=== PATIENT | male | born 1950 | race Caucasian/White ===

== ENCOUNTER 2016-07-08 19:53 | Inpatient (IN) | payer MEDICARE, BC ==
[~2016-07-08] VITALS: Ht 172.7 cm; Wt 88.7 kg
[2016-07-08 20:00] VITALS: BP 149/69
[2016-07-08] MEDS ORDERED: PROGRAF0.5 M1 PO ×2 (20:06→20:07)
[2016-07-08] MEDS ORDERED: HYDRALAZINE HC100 MG PO (20:07)
[2016-07-08] MEDS ORDERED: LIPITOR80 MG PO (20:08)
[2016-07-08] MEDS ORDERED: NIFEDIPINE ER90 MG PO (20:08)
[2016-07-08] MEDS ORDERED: PROTONIX40 MG PO (20:08)
[2016-07-08] MEDS ORDERED: COREG25 MG PO (20:09)
[2016-07-08] MEDS ORDERED: COSOPT EYE DROPS5 ML EACH EYE (20:09)
[2016-07-08] MEDS ORDERED: COLACE100 MG PO (20:09)
[2016-07-08] MEDS ORDERED: ALPHAGAN 0.2%5 ML EACH EYE (20:10)
[2016-07-08] MEDS ORDERED: ISOSORBIDE DINI20 MG PO (20:10)
[2016-07-08] MEDS ORDERED: IPRAT-ALBUT 0.5-3 ML UPD (20:11)
[2016-07-08] MEDS ORDERED: SYNTHROID50 MCG PO (20:12)
[2016-07-08] MEDS ORDERED: PREDNISONE5 MG PO (20:13)
[2016-07-08] MEDS ORDERED: LASIX40 MG PO (20:13)
[2016-07-08] MEDS ORDERED: ECOTRIN325 MG (20:13)
[2016-07-08] MEDS ORDERED: LEVEMIR100 U/M1 (20:14)
[2016-07-08] MEDS ORDERED: NIFEDIPINE ER60 MG PO (20:15)
[2016-07-08] MEDS ORDERED: PLAVIX75 MG PO (20:15)
[2016-07-08] MEDS ORDERED: AKWA TEARS15 ML EACH EYE (20:16)
[2016-07-08] MEDS ORDERED: DULCOLAX5 MG PO (20:16)
[2016-07-08] MEDS ORDERED: NORCO 7.5/325 T1 TA1 PO (20:18)
[2016-07-08] MEDS ORDERED: NOVOLOG100 U/M1 SC (20:18)
[2016-07-08] MEDS ORDERED: ONDANSETRON4 MG/2 M3 IV (20:19)
[2016-07-08] MEDS ORDERED: ACETAMINOPHEN500 M1 PO (20:19)
[2016-07-08 21:05] LABS: BASOPHILS 0.1 % (0.0-2.0); EOSINOPHILS 0.2 % (0-7); HEMATOCRIT 35.6 % (42.0-54.0); HEMOGLOBIN 11.3 g/dL (13.5-17.5); IMMATURE GRANULOCYTES 0.5 % (0-5); LYMPHOCYTES 3.6 % (15-50); MCH 26.3 pg (26.0-34.0); MCHC 31.7 g/dL (31.0-37.0); MCV 82.8 fL (80.0-100.0); MEAN PLATELET VOLUME 10.1 fL (7.4-10.4); MONOCYTES 9.7 % (2-11); NEUTROPHILS 85.9 % (40-80); PLATELET COUNT 249 10x3/uL (130-400); RDW 16.2 % (11.5-14.5); WBC 11.5 10x3/uL (4.8-10.8)
[2016-07-08 21:17] LABS: ALBUMIN 2.4 g/dL (3.4-5.0); ANION GAP 15.5 mmol/L (8-16); BILIRUBIN - DIRECT 0.33 mg/dL (0.00-0.30); BILIRUBIN - INDIRECT 0.36 mg/dL (0.00-1.00); BILIRUBIN - TOTAL 0.69 mg/dL (0.2-1.3); CALCIUM 8.3 mg/dL (8.5-10.1); CARBON DIOXIDE 23.2 mmol/L (21.0-32.0); POTASSIUM - SERUM 4.7 mmol/L (3.5-5.1); PROTEIN - SERUM 6.1 g/dL (6.4-8.2)
[2016-07-08 21:36] LABS: APPEARANCE CLEAR (CLEAR); BILIRUBIN NEGATIVE (NEGATIVE); COLOR YELLOW (YELLOW); GLUCOSE NEGATIVE (NEGATIVE); KETONE NEGATIVE (NEGATIVE); LEUKOCYTE ESTERASE NEGATIVE (NEGATIVE); NITRITE NEGATIVE (NEGATIVE); PROTEIN NEGATIVE (NEGATIVE); UROBILINOGEN NORMAL (NORMAL)
[2016-07-08 21:40] LABS: CKMB 1.6 U/L (0.0-3.6); CREATINE KINASE 59 UL (21-232)
[2016-07-08 21:42] LABS: TROPONIN-I < 0.017 ng/mL (0.000-0.060)
[2016-07-08 21:43] LABS: CREATININE - URINE 51.1 mg/dL (30-125); PRO/CRE RATIO URINE 0.4 mg/g; PROTEIN - URINE 22.9 mg/dL (0.0-11.9)
--- NOTE | 2016-07-08 22:06 | NUR ---
PT ARRIVED VIA EMS FROM [facility] AWAKE, ALERT, ORIENTED @ APPROX 20:00. PT WAS TRANSFERRED WITHOUT DIFFICULTY FROM STRETCHER TO HOSPITAL BED. DR. MIR WAS HERE AND IMMEDIATELY SAW PT UP ON ADMISSION. PT IS DEMONSTRATING NONEXERTIONAL DYSPNEA, WEAKNESS, REQUIRES MODERATE ASSISTANCE WITH URINAL USAGE, TRANSFERRING, AND RESITUATING IN BED. PT DENIES ANY ACUTE NEEDS AT THIS TIME. CONTINUE TO COMPLETE ADMISSION PROCESS AND MONITOR PT CLOSELY.
[2016-07-09] VITALS (12 sets, daily range): BP systolic 137–170; BP diastolic 41–86; Ht 172.7 cm; Wt 88.7 kg
[2016-07-09 03:33] LABS: CKMB 1.3 U/L (0.0-3.6); CREATINE KINASE 52 UL (21-232)
[2016-07-09 03:35] LABS: TROPONIN-I < 0.017 ng/mL (0.000-0.060)
--- NOTE | 2016-07-09 05:08 | NUR ---
PT SITTING UP ON SIDE OF BED, HEAD TILTED DOWN, EYES CLOSED, EASILY ROUSABLE TO VERBAL STIMULI. I ASKED PT IF HE NEED THE HOB RAISED, AND HE STATED HE DID NOT, THAT HE WAS COMFORTABLE IN THAT POSITION. I OFFERED TO ASSIST PT TO BEDSIDE CHAIR, IN WHICH HE ALSO DENIED WANTING TO DO. PT HAS BEEN MILDLY RESTLESS, BUT CONTINUES TO DENY ANY NEEDS. PT STATED HE WOULD NOTIFY ME IF HE FELT LIKE HIS SUGAR WAS GETTING LOW, AND STATES HE IDENTIFIES THAT HE BEGINS HAVING A COLD SWEAT. PT C/O PAIN IN HIS RIGHT SIDE FROM A FALL AT HIS HOME LAST Wednesday07/05/16. CONTINUE TO MONITOR CLOSELY. BED LOW, CALL LIGHT IN REACH, SIDE RAILS X 2, HOB 30 DEGREES. PT DID PULL HIS IV OUT DURING TRANSFERRING FROM WHEELCHAIR AFTER HAVING HIS CT AND X-RAYS DONE UPON ARRIVAL. WILL RESITE.
--- NOTE | 2016-07-09 05:51 | NUR ---
PT LYING IN BED ON RIGHT SIDE, EYES CLOSED, RESPIRATIONS EVEN AND UNLABORED AT THIS TIME. CONTINUE TO MONITOR CLOSELY.
--- NOTE | 2016-07-09 06:35 | NUR ---
PT WAS FOUND LYING IN BED, FSBS 43, O2 69% ON ROOM AIR, PT HAS BECOME COMBATIVE, UNCOOPERATIVE AND SEVERELY AGITATED. PT WAS ADMINISTERED GLUCAGON AND GLUCOSE GEL. PT IS SLOWLY BECOMING MORE COOPERATIVE AND ALERT AT THIS TIME. CONTINUE TO MONITOR CLOSELY.
--- NOTE | 2016-07-09 06:55 | NUR ---
PT REMAINS UNCOOPERATIVE, BUT WILL WEAR HIS O2 NC AT 5LPM AT THIS TIME. PT IS REFUSING THE GLUCOSE GEL, REFUSING TO DRINK JUICE, HAS PULLED HIS LEFT DRESSING OFF HIS LEFT THORACOSTOMY DRAIN TUBE, THEN HAS TRIED TO PULL THE DRAIN TUBE OUT. PT HAS REFUSED THE RENAL U/S. PT IS UNABLE TO BE REORIENTED AT THIS TIME. I HAVE GIVEN ANOTHER DOSE OF IM GLUCAGON. WILL ATTEMPT TO RECHECK FSBS.
--- NOTE | 2016-07-09 07:00 | NUR ---
RECEIVED PT REPORT. WILL CONTINUE PLAN OF CARE. NO OTHER NEEDS AT THIS TIME. WILL CONTINUE TO [facility].
--- NOTE | 2016-07-09 08:24 | NUR ---
PT IS ALERT. ASSESSMENT DONE PER FLOWSHEET. NO CO PAIN AT THIS TIME. WILL CONTINUE TO MOTNIOR.
[2016-07-09 09:44] LABS: CKMB 1.6 U/L (0.0-3.6); CREATINE KINASE 54 UL (21-232); TROPONIN-I < 0.017 ng/mL (0.000-0.060)
[2016-07-09 11:04] LABS: BASOPHILS 0.1 % (0.0-2.0); EOSINOPHILS 0.7 % (0-7); HEMATOCRIT 35.2 % (42.0-54.0); HEMOGLOBIN 11.4 g/dL (13.5-17.5); LYMPHOCYTES 3.7 % (15-50); MCH 26.6 pg (26.0-34.0); MCHC 32.4 g/dL (31.0-37.0); MCV 82.1 fL (80.0-100.0); MONOCYTES 8.4 % (2-11); NEUTROPHILS 86.1 % (40-80); PLATELET COUNT 259 10x3/uL (130-400); RBC 4.29 10x6/uL (4.20-6.10); RDW 15.9 % (11.5-14.5)
[2016-07-09 11:05] LABS: WBC 18.3 10x3/uL (4.8-10.8)
[2016-07-09 11:08] LABS: ANION GAP 12.2 mmol/L (8-16); CALCIUM 8.9 mg/dL (8.5-10.1); CARBON DIOXIDE 26.6 mmol/L (21.0-32.0); CREATININE - SERUM 1.5 mg/dL (0.6-1.3)
[2016-07-09 11:09] LABS: POTASSIUM - SERUM 3.8 mmol/L (3.5-5.1)
--- NOTE | 2016-07-09 12:47 | NUR ---
IV access-#22 introcan catheter in left hand x 1 attempt for IV access. Romana Rdz RN
--- NOTE | 2016-07-09 13:23 | NUR ---
NO SS OF DISTRESS AT THIS TIME. WILL CONTINUE TO MONITOR.
--- NOTE | 2016-07-09 15:47 | NUR ---
PATIENT TO THE FLOOR VIA BED FROM MED 2. PATIENT ALERT, ORIENTED X4. DROWSY. UNABLE TO LAY FLAT. PATIENT WAS POSITIONED IN BED, HOOKED UP TO MONITORS. PATIENT DENIES NEEDS. PATIENT WAS BROUGHT OVER ON 8L N/C. CONFIRMED WITH RESPIRATORY. PER THEM, PATIENT TO BE ON 6L N/C. PATIENTS OXYGEN DROPPED TO 6L. NOTIFIED [facility] THAT THE PATIENT WAS HERE. SHE TOOK OVER CARE.
--- NOTE | 2016-07-09 17:59 | NUR ---
1630 REPORT RECIEVED AND CARE ASSUMED OF PT.. PT HAS A FISTULA IN RIGHT ARM AND A PIV IN THE LEFT HAND.SALINE LOCK. DENIES SOB 8LNC O2.. SR ON HEART MONITOR .. 1700 MEDS GIVEN AND RENAL FULL LIQUID DIET SERVED 1800 WITHOUT VISITORS I AND O DONE
--- NOTE | 2016-07-09 19:15 | NUR ---
REPORT RECEIVED AND CARE GIVEN. PATIENT IS SITTING UP IN BED. DENIES PAIN OR SHORTNESS OF BREATH. O2 ON NC @ 6L WITH SATS IN HIGH 90'S. FISTULA IN RIGHT FOREARM. PIV IN LEFT HAND THAT IS CDI AND PATENT. SEE FLOWSHEET FOR MORE DETAILS. NORMAL SINUS RYTHEM ON MONITOR, VSS.
--- NOTE | 2016-07-09 20:00 | NUR ---
PATIENT UP TO BEDSIDE COMMODE. HAD SMALL BOWEL MOVEMENT. PATIENT CLEANED UP AND BACK TO BED.
--- NOTE | 2016-07-09 21:00 | NUR ---
REFUSING TO TAKE MEDS AT THIS TIME. PATIENT STATES "YOU MADE ME SICK WHEN YOU GAVE ME THE FIRST PILL" PATIENT HELPED UP TO BEDSIDE AND STATES NAUSEA HAS WENT AWAY BUT STILL DENIES TO TAKE PILLS.
--- NOTE | 2016-07-09 23:00 | NUR ---
REASSESSMENT COMPLETE, NO CHANGES AT THIS TIME. PATIENT TOOK HIS PO HYDRALAZINE BUT REFUSED TO TAKE THE REST. PATIENT DENIES TO GIVE CULTURE OF FLUID FROM CHEST TUBE. STATES " THEY DRAINED IT THIS MORNING AND THERE WON'T BE ANYMORE FLUID TIL WEDNESDAY"
[2016-07-10] VITALS (23 sets, daily range): BP systolic 98–172; BP diastolic 61–90
--- NOTE | 2016-07-10 00:45 | NUR ---
PATIENT UP TO BEDSIDE COMMODE. PATIENT HAD SMALL STICKY BOWEL MOVEMENT. CLEANED UP AND BACK TO BED. PATIENT DENIES FURTHER NEED.
--- NOTE | 2016-07-10 03:00 | NUR ---
REASSESSMENT COMPLETE. NO ACUTE CHANGES. SEE FLOWSHEET FOR DETAILS.
--- NOTE | 2016-07-10 05:00 | NUR ---
PATIENT HELPED TO BEDSIDE COMMODE, HAD SMALL BOWEL MOVEMENT, CLEANED UP AND BACK TO BED.
[2016-07-10 05:18] LABS: ANION GAP 16.9 mmol/L (8-16); CALCIUM 8.6 mg/dL (8.5-10.1); CARBON DIOXIDE 24.1 mmol/L (21.0-32.0); CREATININE - SERUM 1.2 mg/dL (0.6-1.3)
[2016-07-10 05:22] LABS: BASOPHILS 0.1 % (0.0-2.0); EOSINOPHILS 0.1 % (0-7); HEMATOCRIT 36.5 % (42.0-54.0); HEMOGLOBIN 11.4 g/dL (13.5-17.5); IMMATURE GRANULOCYTES 1.8 % (0-5); LYMPHOCYTES 3.5 % (15-50); MCH 25.6 pg (26.0-34.0); MCHC 31.2 g/dL (31.0-37.0); MCV 81.8 fL (80.0-100.0); MEAN PLATELET VOLUME 10.1 fL (7.4-10.4); MONOCYTES 6.5 % (2-11); PLATELET COUNT 260 10x3/uL (130-400); RBC 4.46 10x6/uL (4.20-6.10); RDW 16.3 % (11.5-14.5)
[2016-07-10 05:23] LABS: WBC 13.6 10x3/uL (4.8-10.8)
--- NOTE | 2016-07-10 07:00 | NUR ---
REC'D REPORT AND RESUMED CARE, AWAKE AND CONFUSED ABOUT TIME AND SITUATION, O2 VIA NC AT 4L, SAT 97%, RIGHT FA FISTULA NO BRUIE OR THRILL, ABDOMENT WITH CT DRAINS B/L, DRESSING CDI, URINAL IN USE, ASSESSMENT COMPLETE PER FLOWSHEET, VSS, WILL CONTINUE WITH POC
--- NOTE | 2016-07-10 07:45 | NUR ---
BREAKFAST TRAY TO BEDISDE, ASSIST WITH SET UP AND INDEPENDENT WITH EATING
--- NOTE | 2016-07-10 08:15 | NUR ---
600 CC URINE EMPTIED FROM URINAL
--- NOTE | 2016-07-10 10:09 | NUR ---
BATH AND LINEN CHANGE COMPLETED
--- NOTE | 2016-07-10 10:24 | NUR ---
Is the patient Alert and Oriented? Yes 0 * How many steps to enter\exit or inside your home? 5/RAMP 0 * PCP DR. MERLOS AT [facility] * [facility] 0 * Preadmission Environment Home Alone 0 * ADLs Independent 0 * Equipment Oxygen PICC Line Supplies Rolling Walker 0 * Other Equipment PATIENT STATES HE HAS A WALKER WITH A SEAT AND HE [facility] * List name and contact numbers for known caregivers / representatives who currently or will assist patient after discharge: DAUGHTER: ALONZO SIBLEY [phone] 0 * Community resources currently utilized Home Health 0 * Please name any agencies selected above. PATIENT STATES HE HAS [facility] FOR CARE OF HIS CHEST TUBES DRAINING 0 * Additional services required to return to the preadmission environment? No 0 * Can the patient safely return to the preadmission environment? Yes 0 * Has this patient been hospitalized within the prior 30 days at any hospital? No PATIENT STATES HE LIVES ALONE. HE STATES HIS DAUGHTER, ALONZO, LIVES NEXT TO HIM AND ASSIST HIM. SHE WILL BE AVAILABLE TO DRIVE HIM HOME AT DISCHARGE. PATIENT'S PCP IS DR. MERLOS AT THE [facility]. HE GETS HIS MEDS FROM THE [facility]. PATIENT STATES HE IS ON 02 AT HOME PROVIDED BY THE [facility]. HE HAS A WALKER WITH A SEAT. PATIENT STATES HE HAS HOME HEALTH WITH [facility] FOR CARE OF HIS CHEST TUBES DRAINING. THERE ARE 5 STEPS WITH A RAMP TO ENTER THE PATIENT'S HOME. NO DISCHARGE NEEDS IDENTIFIED AT THIS TIME. CM TO FOLLOW.
--- NOTE | 2016-07-10 11:00 | NUR ---
DR ALBRECHT AT BEDSIDE FOR EVAL, NEW ORDERS GIVEN, ASSESSMENT COMPLETE PER FLOWSHEET, VSS, DENIES PAIN, REPOSITIONS INDEPENDENTLY, CALL LIGHT IN REACH
--- NOTE | 2016-07-10 12:00 | NUR ---
FAMILYAT BEDSIDE, STATUS UPDATED, VOICES NO NEEDS AT THIS TIME
--- NOTE | 2016-07-10 13:43 | NUR ---
B/L CT DRAINED, RIGHT 50 CC CLEAR YELLOW DRAINAGE, LEFT SIDE 200 CC DARK YELLOW
--- NOTE | 2016-07-10 14:06 | NUR ---
DR JIMENEZ HERE FOR EVAL, NO NEW ORDERS AT THIS TIME
--- NOTE | 2016-07-10 15:00 | NUR ---
SLEEPING WITH NO SIGNS OF DISTRESS, VSS, NO VISTIORS AT THIS TIME, NO NEEDS AT THIS TIME
--- NOTE | 2016-07-10 16:00 | NUR ---
TONY Mcocy'S COMPLETED
--- NOTE | 2016-07-10 16:30 | NUR ---
DINNER TRAY TO BEDSIDE, INDEPENDENT WITH SET UP AND EATING, FSBS 259, 8 UNITS REG INS GIVEN PER MAR FLOWSHEET
--- NOTE | 2016-07-10 18:15 | NUR ---
FAMILY AT BEDSIDE, STATUS UPDATED VOICES NO OTHER NEEDS AT THIS TIME
--- NOTE | 2016-07-10 19:10 | NUR ---
ASSESSMENT COMPLETE, FAMILY AT BEDSIDE AT THIS TIME. PATIENT SITTING UP ON THE SIDE OF THE BED, IS ALERT AND ORIENTED X4. CRACKLES HEARD IN UPPER LUNG SOUNDS, DIMINISHED IN BASES. S1S2 NOTED WITH NORMAL SINUS RYTHEM ON MONITOR. BOWEL SOUNDS ACTIVE, ABDOMEN DISTENDED, FIRM TO PALPATION. DENIES TENDERNESS. PERIPHERAL PULSES +2. PATIENT HAS BILATERAL CHEST DRAINS THAT ARE COVERED WITH DRESSINGS AND ARE C/D/I. BRUISING NOTED ON RIGHT SIDE OF BODY. PATIENT DENIES NEED AT THIS TIME, VSS. WILL MONITOR.
[2016-07-10 20:21] LABS: PROTEIN - BODY FLUID 2.1 G/DL
--- NOTE | 2016-07-10 21:00 | NUR ---
MEDS GIVEN, FAMILY AT BEDSIDE. DENIES FURTHER NEED.
[2016-07-10 21:16] LABS: LYMPH - BF 85 %; MACROPHAGES BF 2 %; MESOTHELIALS BF 1 %; NEUT - BF 12 %
--- NOTE | 2016-07-10 23:05 | NUR ---
REASSESSMENT COMPLETE. NO CHANGES AT THIS TIME. PATIENT HELPED UP TO BEDSIDE TO USE URINAL. VOIDED 600CC OF CLEAR YELLOW URINE.
[2016-07-11] VITALS (24 sets, daily range): BP systolic 143–190; BP diastolic 63–896
--- NOTE | 2016-07-11 01:00 | NUR ---
PATIENT RESTING IN BED WITH EYES CLOSED. VSS, WILL CONTINUE TO MONITOR.
--- NOTE | 2016-07-11 03:00 | NUR ---
REASSESSMENT COMPLETE, PATIENT AWAKE AND ALERT WATCHING TV. NO CHANGES FROM PREVIOUS ASSESSMENT. BED BATH AND LINEN CHANGE OFFERED BUT PATIENT REFUSED, STATES THEY GAVE HIM A GOOD BATH YESTERDAY AFTERNOON.
--- NOTE | 2016-07-11 05:00 | NUR ---
PATIENT DENIES NEED AT THIS TIME, WILL CONTINUE TO MONITOR.
[2016-07-11 05:04] LABS: BASOPHILS 0 % (0.0-2.0); EOSINOPHILS 0 % (0-7); HEMATOCRIT 36.1 % (42.0-54.0); HEMOGLOBIN 11.4 g/dL (13.5-17.5); IMMATURE GRANULOCYTES 1.6 % (0-5); LYMPHOCYTES 7.8 % (15-50); MCH 26.1 pg (26.0-34.0); MCHC 31.6 g/dL (31.0-37.0); MCV 82.6 fL (80.0-100.0); MEAN PLATELET VOLUME 9.8 fL (7.4-10.4); MONOCYTES 12.6 % (2-11); PLATELET COUNT 267 10x3/uL (130-400); RBC 4.37 10x6/uL (4.20-6.10); WBC 11.7 10x3/uL (4.8-10.8)
[2016-07-11 05:26] LABS: CALCIUM 8.2 mg/dL (8.5-10.1); CREATININE - SERUM 1.1 mg/dL (0.6-1.3); VANCOMYCIN - TROUGH 15.3 ug/mL (10.0-20.0)
[2016-07-11 05:29] LABS: ANION GAP 11.3 mmol/L (8-16); CARBON DIOXIDE 32.5 mmol/L (21.0-32.0); POTASSIUM - SERUM 2.8 mmol/L (3.5-5.1)
--- NOTE | 2016-07-11 06:30 | NUR ---
DR ADEOLA ANG FOR CL POTASSIUM AND BP OF 170'S. ORDERS GIVEN TO GIVEN APRESOLINE EARLY AND 40MEQ OF K.
--- NOTE | 2016-07-11 07:00 | NUR ---
REC'ED REPORT FROM OUT GOING RN. CONTINUE POC.
--- NOTE | 2016-07-11 07:51 | NUR ---
ASSESSMENT COMPLETE - HYPOKALEMIA - GAVE 40MEQ POTASSIUM PO WITH BREAKFAST MEAL
--- NOTE | 2016-07-11 08:20 | NUR ---
MS. Contreras IN UNIT - INFORMED SENIOR ADULTS DIRECTOR OF PT'S HYPOKALEMIA (2.8) AND ELEVATED B/P: 172/70, HR: 72
--- NOTE | 2016-07-11 09:00 | NUR ---
ASSESSMENT COMPLETE - CONT POC
--- NOTE | 2016-07-11 09:30 | NUR ---
MS. Contreras, FACILITY TECHNICIAN, REVIEWED CHART - INFORMED FACILITY TECHNICIAN THE 0900 HYDRALIZINE DOSE WAS GIVEN AT 06:55. iNSTRUCTED TO CONTINUE 0900 B/P MEDIATIONS. MEDICATIONS GIVEN. CONTINUE TO MONITOR AND REPORT FINDINGS
--- NOTE | 2016-07-11 11:30 | NUR ---
ASSISTE PT TO BSC - SMALL SOFT YELLOW STOOL WITH DARK YELLOW URINE - OFFERED TO TRIM PT'S BORREGO - PT DECLINED. BATHED PT AND CHANGED BED LINENS AND BED CLOTHES. ASSISTED PT BACK TO BED WITH MINIMAL ASSISTANCE - PT RESTING SUPINE IN BED RESP REG RATE AND RHYTHM
--- NOTE | 2016-07-11 12:00 | NUR ---
FAMILY (DTR) AT BEDSIDE - ANSWERED ALL QUESTIONS TO THEIR SATISFACTION. PT RESTING WATCHING TV. VOICED NO CONCERNS.
--- NOTE | 2016-07-11 13:16 | NUR ---
PT RESTING WITH EYES CLOSED - RESPIRATIONS REG RATE AND RHYTHM
--- NOTE | 2016-07-11 16:04 | NUR ---
B/S AT 408 - STAT LAB ENTERED AND PAGED DR. JIMENEZ - AWITING CALL BACK
[2016-07-11 16:10] LABS: ANION GAP 7.7 mmol/L (8-16); CALCIUM 8.7 mg/dL (8.5-10.1); CARBON DIOXIDE 35.6 mmol/L (21.0-32.0); CREATININE - SERUM 1.3 mg/dL (0.6-1.3); MAGNESIUM - SERUM 1.7 mg/dL (1.8-2.4)
[2016-07-11 16:11] LABS: POTASSIUM - SERUM 3.3 mmol/L (3.5-5.1)
--- NOTE | 2016-07-11 17:30 | NUR ---
RECHECKED B/S DOWN TO 296 - PAGED DR. JIMENEZ - AWAITING CALL BACK. CONTINUE TO MONITOR
--- NOTE | 2016-07-11 18:00 | NUR ---
PT RESTING - EYES CLOSED - EASILY AROUSED BY TACTILE STIMULI - PT DENIED ANY ADVERSE S/S. CONTINUE TO MONITOR, CONT POC,AND REPORT FINDINGS.
--- NOTE | 2016-07-11 19:05 | NUR ---
ASSESSMENT COMPLETE AT THIS TIME. PATIENT RESTING WITH EYES CLOSED UPON ENTERING THE ROOM. ALERT AND ORIENTED X4, LUNG SOUNDS CLEAR WITH SHALLOW BREATHING. S1S2 NOTED WITH NORMAL SINUS RYTHEM ON MONITOR. BOWEL SOUNDS ACTIVE. GENERALIZED EDEMA NOTED IN EXTREMITIES. BILATERAL PLEURODESIS DRAINS LOCATED ON UPPER ABDOMEN ARE C/D/I. PIV IN LEFT HAND WAS LEAKING, NEW PIV PLACED IN LFA, 22G, 1 ATTEMPT. SITE IS C/D/I WITH NO REDNESS OR SWELLING.
--- NOTE | 2016-07-11 19:45 | NUR ---
PATIENTS BP ELEVATED, NIGHT BP MEDS GIVEN EATLY. WILL MONITOR BP AND CALL IF REMAINS HIGH.
--- NOTE | 2016-07-11 20:00 | NUR ---
PATIENT HELPED TO BEDSIDE COMMODE, HAD SMALL SOFT BOWEL MOVEMENT
--- NOTE | 2016-07-11 21:40 | NUR ---
PATIENT'S BP REMAINS HIGH, RENAL PAGED, ORDERS FOR CLONIDINE 0.1 PRN Q4 FOR SYSTOLIC BP OF GREATER THAN 170 GIVEN.
--- NOTE | 2016-07-11 23:00 | NUR ---
REASSESSMENT COMPLETE. NO ACUTE CHANGES AT THIS TIME.
[2016-07-12] VITALS (11 sets, daily range): BP systolic 142–182; BP diastolic 60–90
--- NOTE | 2016-07-12 01:00 | NUR ---
PATIENT HELPED TO BEDSIDE COMMODE, HAD SMALL SOFT BOWEL MOVEMENT. CLEANED UP AND RETURNED TO BED.
--- NOTE | 2016-07-12 02:30 | NUR ---
BP SYSTOLIC >170, PRN CLONIDINE GIVEN.
--- NOTE | 2016-07-12 03:30 | NUR ---
ICE WATER GIVEN, PATIENT DENIES FURTHER NEED. STATES HE IS FEELING NAUSEATED, BUT DOES NOT WANT PRN ZOFRAN. WILL CONTINUE TO MONITOR.
[2016-07-12 05:24] LABS: BASOPHILS 0.1 % (0.0-2.0); EOSINOPHILS 1.4 % (0-7); HEMATOCRIT 37.6 % (42.0-54.0); IMMATURE GRANULOCYTES 1.6 % (0-5); LYMPHOCYTES 7.4 % (15-50); MCH 26.1 pg (26.0-34.0); MCHC 31.9 g/dL (31.0-37.0); MCV 81.7 fL (80.0-100.0); MEAN PLATELET VOLUME 10.7 fL (7.4-10.4); MONOCYTES 13.5 % (2-11); PLATELET COUNT 261 10x3/uL (130-400); RDW 16.3 % (11.5-14.5); WBC 11.5 10x3/uL (4.8-10.8)
[2016-07-12 05:49] LABS: CALCIUM 8.2 mg/dL (8.5-10.1); CARBON DIOXIDE 33.9 mmol/L (21.0-32.0); CHLORIDE - SERUM 100 mmol/L (98-107); MAGNESIUM - SERUM 1.4 mg/dL (1.8-2.4); PHOSPHOROUS 1.8 mg/dL (2.5-4.9); POTASSIUM - SERUM 3.7 mmol/L (3.5-5.1); SODIUM 140 mmol/L (136-145); eGFR NON AFRICAN AMERICAN 90 mL/min (90-120)
[2016-07-12 05:50] LABS: CALC OSMOLALITY 285 mosm/kg (275-300); CREATININE - SERUM 0.9 mg/dL (0.6-1.3); GLUCOSE 203 mg/dL (74-106); UREA NITROGEN 16 mg/dL (7-18)
--- NOTE | 2016-07-12 06:30 | NUR ---
DR MIR PAGED FOR BP, ORDERS GIVEN FOR LISINOPRIL 5MG BID.
[2016-07-12 11:07] LABS: AFB SPECIMEN PROCESSING Concentration (())
--- NOTE | 2016-07-12 17:48 | NUR ---
ARRIVE TO UNIT VIA WHEELCHAIR FROM ICU. REPORT RECIEVED ETHAN GIRARD. ALERT AND ORIENTED X4. TRANSFERS FROM WHEELCHAIR TO BED WITH MINIMAL ASSISTANCE. GENERALIZED WEAKNESS. ANTIBIOTIC INFUSING LT FA IV ORDERED. RESERVE RT ARM SIGNS PLACED ON DOOR AND AT HOB. CHRONIC SOB TREATED WITH OXYGEN. ABDOMINAL DRESSINGS BILATERALLY CLEAN DRY INTACT. BP-121/78, R-20, P-62 SINUS RHYTHM, T-98.7, O2-96% 2L NC. RECIEVES LOVENOX INJ. BED LOCKED AND LOW. CALL LIGHT IN REACH. TWO SIDERAILS UP.
--- NOTE | 2016-07-12 19:34 | NUR ---
PT LYING IN BED, AWAKE, ALERT, ORIENTED, DENIES ANY NEEDS. PT STATES HE IS FEELING OK. CONTINUE TO MONITOR CLOSELY. BED LOW, CALL LIGHT IN REACH, SIDE RAILS X 2, HOB FLAT.
--- NOTE | 2016-07-12 20:17 | NUR ---
FSBS IS 121, HOLDING 21:00 INSULIN, PT EATING ORANGE SHERBERT FOR SNACK. CONITNUE TO MONITOR CLOSELY.
[2016-07-13] VITALS: BP 151/59
--- NOTE | 2016-07-13 01:05 | NUR ---
PT AWAKE, ALERT, ORIENTED, REQUESTED HELP TO SIT ON SIDE OF BED TO USE HIS URINAL. DENIES ANY NEEDS, IN NO ACUTE DISTRESS. CONTINUE TO MONITOR CLOSELY.
--- NOTE | 2016-07-13 02:38 | NUR ---
PT ASKING FOR HELP TO SIT UP ON SIDE OF BED FOR A LITTLE WHILE. PT STATES HE GETS TIRED OF LAYING THERE. DENIES ANY OTHER NEEDS. CONTINUE TO MONITOR CLOSELY.
[2016-07-13 04:00] VITALS: BP 147/66
[2016-07-13 05:35] LABS: BASOPHILS 0 % (0.0-2.0); EOSINOPHILS 0.5 % (0-7); HEMATOCRIT 37.2 % (42.0-54.0); HEMOGLOBIN 11.6 g/dL (13.5-17.5); IMMATURE GRANULOCYTES 1.4 % (0-5); LYMPHOCYTES 8.6 % (15-50); MCH 25.6 pg (26.0-34.0); MCHC 31.2 g/dL (31.0-37.0); MCV 81.9 fL (80.0-100.0); MEAN PLATELET VOLUME 9.3 fL (7.4-10.4); MONOCYTES 8.7 % (2-11); NEUTROPHILS 80.8 % (40-80); PLATELET COUNT 251 10x3/uL (130-400); RBC 4.54 10x6/uL (4.20-6.10); RDW 16.1 % (11.5-14.5); WBC 13.2 10x3/uL (4.8-10.8)
[2016-07-13 05:54] LABS: ANION GAP 7.7 mmol/L (8-16); CALCIUM 8.5 mg/dL (8.5-10.1); CARBON DIOXIDE 34.4 mmol/L (21.0-32.0); CREATININE - SERUM 1.1 mg/dL (0.6-1.3); MAGNESIUM - SERUM 1.4 mg/dL (1.8-2.4); PHOSPHOROUS 2.2 mg/dL (2.5-4.9); POTASSIUM - SERUM 3.1 mmol/L (3.5-5.1)
[2016-07-13 08:00] VITALS: BP 166/67
[2016-07-13 12:00] VITALS: BP 150/60
--- NOTE | 2016-07-13 13:00 | NUR ---
ALERT AND ORIENTED X4. PULLED OUT IV TIP INTACT. RESITE IV 22G BY ASPHALT PAVING SUPERVISOR. DENIES SOB OR PAIN. SINUS RHYTHM WITH PACs ON TELEMETRY. RECIEVES LOVENOX INJ. BED LOCKED AND LOW. CALL LIGHT IN REACH. TWO SIDERAILS UP. STUDENT NURSE AT BEDSIDE.
[2016-07-13 13:13] LABS: FUNGUS STAIN Final report (())
--- NOTE | 2016-07-13 13:25 | EC ---
PATIENT:LAKHWINDER DANIEL DATE OF SERVICE: 07/08/16 SEX: M MEDICAL RECORD: [id number] DATE OF : [birth year] LOCATION:D.M2 D.210 AGE OF PATIENT: 66 ADMISSION DATE: 07/08/16 REFERRING PHYSICIAN: INTERPRETING PHYSICIAN: KRISTI NJ MD ECHOCARDIOGRAM REPORT ECHO CHARGES 5 ECHO LIMITED CLINICAL DIAGNOSIS: CHF HX OF CAD/STENTS X2/HTN ECHOCARDIOGRAPHIC MEASUREMENTS (adult normal given) AC root (d.<3.7cm) LV Septum d (<1.2 cm> Valve Excursion LV Septum (systole) Left Atria (s.<4.0cm> 3.8 LVPW d(<1.2cm) RV (d.<2.3cm) LVPW (sytole) LV diastole(<5.6CM) 5.3 MV E-F(>70mm/sec) 3.4 LV systole 3.4 LVOT Diameter 1.9 MV exc.(>10mm) Est.ejection fraction (50-75%) Pericardial Effusion N DOPPLER: LVIT A 99.0 E 115 LA RVSP LVOT 120 AOP1/2T Asc. Ao 173 RVOT RA PA AV Gradient Peak 12.01 AV Mean 5.7 AV Area 2.3 MV Gradient Peak 5.0 MV Mean 1.67 MV Area COMMENTS: Box Turner: Adarsh PAIZ Svp Programmatic Tv:10 Dr. Velasquez TAPE# PACS DATE OF SERVICE: 07/10/2016 Adequate 2D echo, color flow and spectral Doppler, M-mode. Borderline LVH. LV internal dimensions are normal. Wall motion is normal. EF is greater than 55%. Aortic valve sclerosis without stenosis by Doppler interrogation. The left atrium is normal at 3.8 cm. Mitral valve shows no prolapse. Trace MR. Right-sided chamber is grossly normal. Trace TR. TRANSINT:[id number] Voice Confirmation ID: [id number] DOCUMENT ID: [id number] ECHOCARDIOGRAM REPORT [id number] LAKHWINDER DANIEL GREGORY A MD at 1325 CC: [id number] DICTATION DATE: 07/10/16 1407 CORPORATE TAX PREPARER: 07/11/16 0421 ADM IN [id number] [place] [address]
--- NOTE | 2016-07-13 15:00 | NUR ---
ALERT AND ORIENTED X4. BILATERAL THORACOTOMY DRAINS DRAINED. NEW DRESSINGS APPLIED BILATERALLY. NAME AND DATE ON DRESSING. IV ANTIBIOTICS INFUSING LT HAND IV ORDERED. SINUS RHYTHM 55bpm WITH PVCs. DENIES SOB OR PAIN. CONTINUE PLAN OF CARE. BED LOCKED AND LOW. CALL LIGHT IN REACH. TWO SIDERAILS UP.
[2016-07-13 16:00] VITALS: BP 137/62
[2016-07-13 20:00] VITALS: BP 172/68
--- NOTE | 2016-07-13 22:09 | NUR ---
PT AWAKE, ALERT, ORIENTED, HAVING RECURRENT AND UNCONTROLLABLE DIARRHEA AT THIS TIME. STOOL SAMPLE NEGATIVE FOR CDT AND BLOOD. HAVE CALLED RENAL CAMP NURSE FOR ORDERS. CONTINUE TO MONITOR CLOSELY. WILL PROVIDE BEDSIDE COMMODE FOR PT. DENIES ANY OTHER NEEDS. CONTINUE TO MONITOR CLOSELY.
[2016-07-14] VITALS: BP 148/64
--- NOTE | 2016-07-14 | NUR ---
PTS DIARRHEA HAS SLOWED DOWN, CDT NEGATIVE. [place]ASIA CORCORAN WITH RENAL MARKETING AND DEVELOPMENT COORDINATOR DID AUTHORIZE IMMODIUM 2MG Q 2 HOURS PRN DIARRHEA, AND STARTED PT ON A PROBIOTIC TID. FIRST DOSES GIVEN. I AM HOLDING PTS ANTIBIOTIC FOR A LITTLE WHILE, TO ALLOW THE IMMODIUM TO GET IN HIS SYSTEM. PT DENIES EVER HAVING DIARRHEA THIS SEVERE. CONTINUE TO MONITOR CLOSELY.
[2016-07-14 04:00] VITALS: BP 146/58
[2016-07-14 06:19] LABS: BASOPHILS 0.2 % (0.0-2.0); EOSINOPHILS 0.6 % (0-7); HEMOGLOBIN 11.2 g/dL (13.5-17.5); IMMATURE GRANULOCYTES 1.2 % (0-5); LYMPHOCYTES 8.8 % (15-50); MCH 25.6 pg (26.0-34.0); MCHC 31.1 g/dL (31.0-37.0); MCV 82.4 fL (80.0-100.0); MEAN PLATELET VOLUME 9.7 fL (7.4-10.4); MONOCYTES 8.5 % (2-11); NEUTROPHILS 80.7 % (40-80); PLATELET COUNT 226 10x3/uL (130-400); RBC 4.37 10x6/uL (4.20-6.10); RDW 16.1 % (11.5-14.5); WBC 12.2 10x3/uL (4.8-10.8)
[2016-07-14 06:24] LABS: CALC OSMOLALITY 287 mosm/kg (275-300); CALCIUM 8.3 mg/dL (8.5-10.1); CARBON DIOXIDE 31.9 mmol/L (21.0-32.0); CHLORIDE - SERUM 101 mmol/L (98-107); GLUCOSE 259 mg/dL (74-106); MAGNESIUM - SERUM 1.8 mg/dL (1.8-2.4); PHOSPHOROUS 2.4 mg/dL (2.5-4.9); POTASSIUM - SERUM 3.6 mmol/L (3.5-5.1); SODIUM 138 mmol/L (136-145); UREA NITROGEN 21 mg/dL (7-18); eGFR NON AFRICAN AMERICAN 79 mL/min (90-120)
[2016-07-14 08:20] VITALS: BP 180/75
[2016-07-14 12:07] VITALS: BP 159/62
--- NOTE | 2016-07-14 14:00 | NUR ---
ALERT AND ORIENTED X4. SITTING UP ON SIDE OF BED. DENIES SOB OR PAIN. STUDENT NURSES AT BEDSIDE. DRAIN THORACOTOMY DRAINS BILATERALLY. RT THORACOTOMY SCANT DRAINAGE. CLEAN DRESSING APPLIED. LEFT THORACOTOMY DRAINED 100mLs. CLEAN DRESSING APPLIED. BOTH DRESSINGS INITIALLED AND DATED. SINUS RHYTHM 60bpm WITH PVCs ON TELEMETRY. CONTINUE PLAN OF CARE. BED LOCKED AND LOW. CALL LIGHT IN REACH. TWO SIDERAILS UP.
[2016-07-14 16:07] VITALS: BP 148/59
--- NOTE | 2016-07-14 17:56 | NUR ---
RESTING IN BED. READY TO GO HOME. ALERT AND ORIENTED X4. DENIES PAIN OR SOB. NO CHANGE. PREPAIR SHIFT CHANGE REPORT.
[2016-07-14 19:00] VITALS: BP 154/60
--- NOTE | 2016-07-14 22:07 | NUR ---
PT AWAKE, ALERT, ORIENTED, SITTING ON THE SIDE OF THE BED EATING ORANGE SHERBERT AND BEN CRACKERS. PT STATES HE IS LOOKING FORWARD TO GOING HOME TOMORROW. PT DENIES ANY NEEDS, AND STATES HE HAS NOT HAD DIARRHEA ALL DAY. CONTINUE TO MONITOR CLOSELY. BED LOW, CALL LIGHT IN REACH, SIDE RAILS X 2, HOB 20 DEGREES.
[2016-07-15] VITALS: BP 153/61
[2016-07-15 04:00] VITALS: BP 167/64
--- NOTE | 2016-07-15 06:42 | NUR ---
PT AWAKE, ALERT, ORIENTED, DENIES ANY NEEDS. CONTINUE TO MONITOR CLOSELY.
[2016-07-15 06:58] LABS: MAGNESIUM - SERUM 1.9 mg/dL (1.8-2.4); PHOSPHOROUS 2.6 mg/dL (2.5-4.9); VANCOMYCIN - TROUGH 20.8 ug/mL (10.0-20.0)
[2016-07-15 07:48] VITALS: BP 176/69
[2016-07-15] MEDS ORDERED: HYDRALAZINE HCL50 MG PO (08:29)
[2016-07-15] MEDS ORDERED: LISINOPRIL5 MG PO (08:29)
--- NOTE | 2016-07-15 11:19 | NUR ---
Patient Name: LAKHWINDER DANIEL Encounter No: [id number] : 1950 Primary Insurance: MEDICARE A & B Anticipated DC Date: 07-15-2016 Planned Disposition: Home with Home Health External [facility] follow-up note: CM MET WITH PT IN ROOM TO DISCUSS DISCHARGE NEEDS AND PLANNING. CM DISCUSSED AVAILABILITY OF HOME HEALTH, REHAB SERVICES AND MEDICAL EQUIPMENT. PT DENIES DISCHARGE NEEDS OTHER THAN RESUMPTION OF HOME HEALTH THAT HAS BEEN TAKING CARE OF HER CHEST TUBES FOR THE PAST YEAR. DAUGHTER TO TRANSPORT HOME TODAY AT DISCHARGE AND WILL BE HERE SOMETIME AFTER DINNER. IMPORTANT MESSAGE FROM MEDICARE PROVIDED AND EXPLAINED. CM CALLED [facility], , SPOKE TO ERIN AND PROVIDED REFERRAL INFORMATION FOR RESUMPTION OF HOME HEALTH CARE. CM FAXED DISCHARGE INFORMATION TO [facility] AT [phone]. NO FURTHER DISCHARGE NEEDS IDENTIFIED. Janes Vera, CASE MANAGEMENT
[2016-07-15 11:35] VITALS: BP 168/67
--- NOTE | 2016-07-15 11:36 | NUR ---
Pt sitting up on side of bed. FSBS 325. Saline lock in left hand DCed with cath tip intact. Pt denies pain or further needs at this time.
--- NOTE | 2016-07-15 12:03 | NUR ---
SITTING UP ON SIDE OF BED EATING LUNCH. ALERT AND ORIENTED X4. STUDENT NURSE DC LT HAND IV, TIP INTACT. DISCHARGE INSTRUCTIONS GIVEN VERBALLY AND WRITTEN. DISCHARGE PAPERS SIGNED ON CHART. WAITING FOR RIDE TO ARRIVE. DENIES PAIN OR SOB. CONTINUE PLAN OF CARE AND SAFETY PRECAUTIONS.
--- NOTE | 2016-07-15 12:46 | NUR ---
Patient Name: LAKHWINDER DANIEL Encounter No: [id number] : 1950 Primary Insurance: MEDICARE A & B Anticipated DC Date: 07-15-2016 Planned Disposition: Home with Home Health External Planned Provider: [facility] DCP follow-up note: CM RECEIVED CALL FROM ERIN OF [facility], , SPOKE WHO REQUESTED HOME HEALTH ORDER. CM OBTAINED AND FAXED HOME HEALTH RESUMPTION ORDER TO [facility] AT [phone]. NO FURTHER DISCHARGE NEEDS IDENTIFIED. Janes Vera, CASE MANAGEMENT
--- NOTE | 2016-07-15 12:51 | NUR ---
PT D/C, ESCORTED OU VIA WHEELCHAIR, FAMILY AT SIDE.
[2016-07-15 18:10] LABS: AEROBE ID Final report (())
--- NOTE | 2016-07-24 12:39 | CN ---
PATIENT NAME:LAKHWINDER DANIEL MEDICAL RECORD: [id number] : 50 LOCATION:[facility]. [address]2109 ADMIT DATE: 07/08/16 ACCOUNT: [id number] CONSULTING PHYSICIAN: KARLA REAL MD REFERRING PHYSICIAN: KIRTI MIR MD DATE OF CONSULTATION: 07/09/2016 CONSULT REQUESTING PHYSICIAN: Kirti Mir MD REASON FOR CONSULTATION: Recurrent bilateral pleural effusion status post left-sided pleurodesis and pneumonia. HISTORY OF PRESENT ILLNESS: Mr. Daniel is a 66-year-old gentleman who has a history of congestive heart failure, chronic renal failure with recurrent bilateral pleural effusion and PleurX chest tube was placed. This month, the patient has pleurodesis in the first week and the patient improved and sent home with the PleurX tube in. He is draining this fluid by the nurse once a week. The patient was readmitted to the hospital for hypoglycemia and found out his renal function is going worse and the patient was transferred over here for further care. The patient denies any fever and chills and no night sweats. He is a very poor historian. The patient does have a history of obstructive sleep apnea and obesity hypoventilation syndrome, but he is very noncompliant and he is not using any CPAP machine. REVIEW OF SYSTEMS: Mainly in the history of present illness. PAST MEDICAL HISTORY: 1. End-stage renal disease status post renal transplant. 2. Remote history of smoking, possible underlying chronic obstructive pulmonary disease. 3. Coronary artery disease status post PTCA. 4. Recurrent pleural effusion for which he has a PleurX tube placed. 5. Hypertension. 6. Gastroesophageal reflux disease. 7. Obstructive sleep apnea and obesity hypoventilation syndrome. The patient is very noncompliant with his CPAP machine. 8. History of atrial fibrillation. 9. Congestive heart failure with a diastolic dysfunction with an EF of 65%. 10. Coronary artery disease status post PTCA and stent placement. 11. History of atrial fibrillation. PAST SURGICAL HISTORY: 1. He is status post left-sided pleurodesis. 2. Status post bilateral PleurX tube placement. 3. Status post renal transplant. ALLERGIES: HE IS ALLERGIC TO MORPHINE, CODEINE AND OXYCODONE. PRESENT MEDICATIONS: He is on immunosuppressant medication for prevention of renal transplant rejection. PERSONAL AND SOCIAL HISTORY: The patient has a remote history of smoking at a young age for 2-3 years. The patient states he do not have COPD. He is nondrinker. CONSULT REPORT [id number] LAKHWINDER DANIEL FAMILY HISTORY: Noncontributory. PHYSICAL EXAMINATION: GENERAL: Now, the patient is lying comfortably. He is not in acute distress, wearing nasal cannula oxygen. VITAL SIGNS: The blood pressure is 155/69, pulse is 73, respirations is 22, temperature 97.3, SpO2 of 94% on 5 L nasal cannula. HEENT: Conjunctiva is pale. Sclerae are nonicteric. Pupils equal, round and reactive to light. NECK: Supple. No JVD. CHEST: There is decreased breath sound at the left base. There are bilateral PleurX chest tubes. ABDOMEN: Soft, bowel sounds present. No hepatosplenomegaly. RECTAL: Deferred. EXTREMITIES: No cyanosis, no clubbing. There is 1+ pedal edema. CENTRAL NERVOUS SYSTEM: The patient is awake and alert. There are no obvious cranial nerve abnormalities. The gait was not tested. IMAGING: CT scan of the chest: There is bilateral infiltrate. There is consolidation of the left lower lobe. There is atelectasis. There are bilateral PleurX chest tubes. The left side looked like at the lung parenchyma, probably in the fissure. LABORATORY DATA: CBC: WBC 18.3, hemoglobin 11.4, hematocrit 35.2 and platelet count 259. Chemistry: Sodium 133, potassium 3.8, BUN is 49, creatinine 1.5 and glucose 152. IMPRESSION: 1. Recurrent pleural effusion, most likely secondary to congestive heart failure and renal failure and now status post bilateral PleurX tubes placement. 2. Status post left pleurodesis. 3. Pneumonia, left lower lobe, possible hospital-acquired pneumonia with recent hospitalization. 4. Significant leukocytosis secondary to above. 5. Hzxif-al-zwvmkzo renal failure. 6. Status post kidney transplant. 7. Chronic immunosuppression to prevent kidney transplant rejection. 8. Acute hypoxic respiratory failure. 9. Gastroesophageal reflux disease. 10. Obstructive sleep apnea. The patient is noncompliant with CPAP. 11. Coronary artery disease. 12. Congestive heart failure with diastolic dysfunction. 13. Chronic obstructive pulmonary disease without exacerbation. 14. Type 2 diabetes mellitus. RECOMMENDATION: 1. Start him on vancomycin, Levaquin and cefepime to cover for Gram-negative rods, hospital-acquired pneumonia and MRSA. 2. Albuterol/ipratropium nebulizer. 3. Continue the PleurX tube. 4. Check culture and sensitivity on the bilateral pleural effusion. I will consult Dr. Urrutia for VATS as well as possible decortication. Continue all medications per Dr. Mir. Dr. Mir, once again thanks for involving me in the care of Mr. Daniel. CONSULT REPORT [id number] LAKHWINDER DANIEL The critical care time was 45 minutes. TRANSINT:[id number] Voice Confirmation ID: [id number] DOCUMENT ID: [id number] KARLA REAL MD at 1239 CC: KIRTI MIR MD [id number] DICTATION DATE: 07/09/16 1442 EDITOR MANAGING NEWSPAPER: 07/09/16 1758 DIS IN 07/15/16 [facility] [address] [place] [address]
[2016-08-10 09:09] LABS: FUNGUS MYCOLOGY CULTURE Final report (())
[2016-09-01 10:17] LABS: ACID FAST CULTURE Negative (()); ACID FAST SMEAR Negative (())
== END 2016-07-15 15:16 | disposition home health service (06) | DRG 682 ==
LOC: D.M2 19:53 → D.ICU 19:53 → D.M2 07-12 17:47
PROVIDERS: Internal Medicine Pulmonary Disease; ADMIT Internal Medicine Nephrology
DX: N17.9 Acute kidney failure, unspecified (principal); J96.01 Acute respiratory failure with hypoxia; J18.9 Pneumonia, unspecified organism; I13.2 Hypertensive heart and chronic kidney disease with heart failure and with stage 5 chronic kidney disease, or end stage renal disease; J90 Pleural effusion, not elsewhere classified; Z94.0 Kidney transplant status; J98.11 Atelectasis; G72.81 Critical illness myopathy; N18.6 End stage renal disease; I50.9 Heart failure, unspecified; Z99.2 Dependence on renal dialysis; E11.22 Type 2 diabetes mellitus with diabetic chronic kidney disease; J44.9 Chronic obstructive pulmonary disease, unspecified; G47.33 Obstructive sleep apnea (adult) (pediatric); K21.9 Gastro-esophageal reflux disease without esophagitis; Z91.19 Patient's noncompliance with other medical treatment and regimen; I25.10 Atherosclerotic heart disease of native coronary artery without angina pectoris; Z95.5 Presence of coronary angioplasty implant and graft